=== PATIENT | female | born 1985 | race African-American/Black ===

== ENCOUNTER 2017-02-14 06:30 | Emergency (ER) | payer OTHER ==
[2017-02-14] MEDS ORDERED: LIDOCAINE-EPINEPH-TETRACAINE 3 ML SYRINGE TOP STA (06:53)
[2017-02-14] MEDS ORDERED: LIDOCAINE-EPINEPH-TETRACAINE 3 ML SYRINGE TOP ONE (06:53)
[2017-02-14] MEDS ORDERED: ACETAMINOPHEN 325 MG TABLET PO STA (06:53)
[2017-02-14] MEDS ORDERED: ACETAMINOPHEN 325 MG TABLET PO ONE (06:54)
== END 2017-02-14 07:41 | disposition home or self-care (01) ==
DX: S01.112A Laceration without foreign body of left eyelid and periocular area, initial encounter (principal); W22.03XA Walked into furniture, initial encounter; Y92.003 Bedroom of unspecified non-institutional (private) residence as the place of occurrence of the external cause
CPT/HCPCS: 12011; 99282; 99283; A9270

== ENCOUNTER 2017-05-04 14:56 | Emergency (ER) | payer OTHER ==
--- NOTE | 2017-05-04 15:58 | ED Physician Documentation ---
PD HPI HEADACHE - Stated complaint Stated Complaint: HEADACHE/VISION CHANGE - Chief complaint Chief Complaint: Neuro - History obtained from History obtained from: Patient, Family - History of Present Illness Timing - onset: How many weeks ago (1) Timing - onset during: Rest Timing - duration: Weeks (1) Timing - details: Gradual onset, Still present, Waxing and waning Worst headache ever?: No: Worst headache ever? Location: Front, Right Quality: Throbbing, Aching Associated symptoms: Stiff neck, Nausea, Vomiting, Vision changes. No: Weakness , Numbness, Syncope, Seizure, Eye pain Improved by: Rest, Dark room Worsened by: Light, Noise, Moving Contributing factors: Other (14 weeks ). No: Anticoagulated Similar symptoms before: Diagnosis (migraine) Recently seen: Clinic - Additional information Additional information: 31-year-old female is 14 weeks and has developed nausea and vomiting again and she is now developed visual changes with spots in front of her eyes when she tries to stand up and she feels somewhat dizzy when she does this as well. She has developed a headache and tightness in her neck and shoulders.She reports that she had a lot of morning sickness until the 11th week this then went away and is now returned.She is also complaining of some urinary urgency and frequency with small voids. Review of Systems Constitutional: denies: Fever, Chills Eyes: reports: Photophobia, Other (Spots in front of the vision with standing). denies: Decreased vision Ears: reports: Ear pain Nose: reports: Rhinorrhea / runny nose, Congestion Throat: reports: Sore throat Respiratory: denies: Dyspnea, Cough GI: reports: Nausea, Vomiting : reports: Frequency. denies: Dysuria Skin: denies: Rash Musculoskeletal: denies: Neck pain, Back pain, Extremity pain Neurologic: reports: Headache. denies: Generalized weakness, Focal weakness, Numbness, Difficulty speaking, Near syncope, Confused, Altered mental status, Head injury, LOC PD PAST MEDICAL HISTORY - Past Medical History Neuro: None Other Past Medical History: HSV 1 & 2 - Past Surgical History Past Surgical History: No - Present Medications Home Medications: Ambulatory Orders Medication Instructions Recorded Confirmed Valacyclovir HCl [Valtrex] 500 mg PO DAILY 02/14/17 - Allergies Allergies/Adverse Reactions: Allergies Allergy/AdvReac Type Severity Reaction Status Date / Time Penicillins Allergy Respiratory Verified 02/14/17 06:45 - Social History Does the pt smoke?: No Smoking Status: Never smoker PD ED PE NORMAL - Vitals Vital signs reviewed: Yes (Normal) - General General: No acute distress, Well developed/nourished - HEENT HEENT: Atraumatic, PERRL, EOMI, Ears normal, Moist mucous membranes, Pharynx benign, Dentition benign - Neck Neck: Supple, no meningeal sign, No bony TTP - Cardiac Cardiac: RRR, No murmur - Respiratory Respiratory: No respiratory distress, Clear bilaterally - Abdomen Abdomen: Soft, Non tender, Other (Gravid uterus to below the umbilicus-Nontender ) - Back Back: No CVA TTP, No spinal TTP - Derm Derm: Normal color, Warm and dry, No rash - Extremities Extremities: No deformity, No edema - Neuro Neuro: Alert and oriented X 3, No motor deficit, No sensory deficit, Normal speech - Psych Psych: Normal mood, Normal affect Results - Vitals Vitals: Vital Signs - 24 hr 05/04/17 05/04/17 15:00 18:00 Temperature 36.9 C 36.7 C Heart Rate 90 84 Respiratory 16 16 Rate Blood Pressure 108/68 110/73 O2 Saturation 100 98 Oxygen O2 Source Room air - Labs Labs: Laboratory Tests 05/04/17 05/04/17 05/04/17 16:10 17:39 18:00 WBC 6.8 RBC 4.31 Hgb 12.9 Hct 37.7 MCV 87.3 MCH 29.9 MCHC 34.2 RDW 12.2 Plt Count 184 MPV 7.3 L Neut # 5.5 Lymph # 0.7 L Giles # 0.6 Eos # 0.0 Baso # 0.0 Absolute Nucleated RBC 0.00 Nucleated RBCs 0.0 Sodium 133 L Potassium 4.0 Chloride 103 Carbon Dioxide 21 Anion Gap 9.0 BUN 11 Creatinine 0.6 Estimated GFR (MDRD) 141 Glucose 77 Calcium 8.8 Total Bilirubin 0.4 AST 28 ALT 16 Alkaline Phosphatase 65 Total Protein 7.2 Albumin 3.7 Globulin 3.5 Albumin/Globulin Ratio 1.1 Lipase 25 Urine Color YELLOW Urine Clarity HAZY Urine pH 6.0 Ur Specific [place] >=1.030 H Urine Protein NEGATIVE Urine Glucose (UA) NEGATIVE Urine Ketones >=80 H Urine Occult Blood NEGATIVE Urine Nitrite NEGATIVE Urine Bilirubin NEGATIVE Urine Urobilinogen 0.2 (NORMAL) Ur Leukocyte Esterase NEGATIVE Urine RBC 0-5 Urine WBC 0-3 Ur Squamous Epith Cells MANY Squamous H Urine Bacteria Few Urine Mucus Marked Strands Ur Microscopic Review INDICATED Urine Culture Comments NOT INDICATED Procedures - Bedside sono Bedside sono by EMP: With use of bedside ultrasound the fetus is imaged it is imaged at 14 weeks 6 days by biparietal diameter the is active the heart rate is estimated at 156 it is difficult to get the infant to stay still enough for a complete screen. - IVC sono (time) 1550 Bedside IVC sono: IVC measures (cm) (1.12), IVC collapsed c insp (cm) (complete) , Dehydration PD MEDICAL DECISION MAKING - ED course Complexity details: reviewed old records, reviewed results, re-evaluated patient , considered differential, d/w patient, d/w family ED course: 31-year-old female is 14 weeks and has had some vomiting decreased urine output and visual changes with orthostasis and she is found to be dehydrated. An IV is begun she is hydrated with saline and we are checking her urine. She is much improved with hydration and symptoms are resolving she continues to have slight headache behind her eyes and she is administered to hydrocodone. Urine is clear. Departure - Departure Disposition: 01 Home, Self Care Clinical Impression: Dehydration Condition: Stable Instructions: ED Dehydration Follow-Up: Juan Manuel Disla MD [Primary Care Provider] -
[2017-05-04] MEDS: SODIUM CHLORIDE 0.9% 1,000 ML IV ONE ×2 (16:14→18:11)
[2017-05-04 16:55] LABS: ALBUMIN/GLOBULIN RATIO 1.1 (1.0-2.2); BILIRUBIN,TOTAL 0.4 mg/dL (0.2-1.0); CALCIUM 8.8 mg/dL (8.5-10.3); CREATININE 0.6 mg/dL (0.4-1.0); TOTAL PROTEIN 7.2 g/dL (6.7-8.2)
[2017-05-04 17:44] LABS: BASOPHILS % (AUTO) 0.4 %; EOSINOPHILS % (AUTO) 0.4 %; HCT - HEMATOCRIT 37.7 % (37.0-47.0); HGB - HEMOGLOBIN 12.9 g/dL (12.0-16.0); LYMPHOCYTES # (AUTO) 0.7 10^3/uL (1.5-3.5); LYMPHOCYTES % (AUTO) 9.9 %; MEAN CORPUSCULAR HEMOGLOBIN 29.9 pg (27.0-31.0); MEAN CORPUSCULAR HGB CONC 34.2 g/dL (32.0-36.0); MEAN CORPUSCULAR VOLUME 87.3 fL (81.0-99.0); MEAN PLATELET VOLUME 7.3 fL (7.9-10.8); MONOCYTES # (AUTO) 0.6 10^3/uL (0.0-1.0); MONOCYTES % (AUTO) 8.5 %; NEUTROPHILS # (AUTO) 5.5 10^3/uL (1.5-6.6); NEUTROPHILS % (AUTO) 80.8 %; RED BLOOD COUNT 4.31 10^6/uL (4.20-5.40); RED CELL DISTRIBUTION WIDTH 12.2 % (12.0-15.0); UNCORRECTED WHITE BLOOD COUNT 6.8 x10^3/uL; WHITE BLOOD COUNT 6.8 x10^3/uL (4.8-10.8)
[2017-05-04 18:07] LABS: BILIRUBIN,URINE NEGATIVE (NEGATIVE)
[2017-05-04 18:11] LABS: UA w/ MICROSCOPIC CHARGE YES
[2017-05-04] MEDS ORDERED: HYDROcod/ACETAM 5/325 MG TABLET ONE (18:35)
[2017-05-04 18:40] LABS: UR CULTURE IF IND NOT INDICATED; WBC,URINE 0-3 /HPF (0-5)
[2017-05-04] MEDS: HYDROcod/ACETAM 5/325 MG TABLET PO STA (18:40)
[2017-05-04 19:00] VITALS: BP 109/67
== END 2017-05-04 19:15 | disposition home or self-care (01) ==
LOC: ED 14:56
DX: O99.282 Endocrine, nutritional and metabolic diseases complicating pregnancy, second trimester (principal); E86.0 Dehydration; O99.89 Other specified diseases and conditions complicating pregnancy, childbirth and the puerperium; R51 Headache; Z3A.14 14 weeks gestation of pregnancy
CPT/HCPCS: 36415; 80053; 81001; 81003; 83690; 85025; 87086; 96360; 99284